=== PATIENT | male | born 1995 | race Caucasian/White ===

== ENCOUNTER 2019-09-26 01:42 | Emergency (ER) | payer MEDICAID ==
[~2019-09-26] VITALS: Ht 25.4 cm; Wt 73.9 kg
[2019-09-26] MEDS ORDERED: SODIUM CHLORIDE 0.9% 1,000 ML IV ONE ×2 (02:40→03:15)
[2019-09-26 02:57] LABS: Basophils # (auto) 0 10 ^3/uL (0-0.2); Basophils % (auto) 0.3 % (0.0-2.0); Eosinophils # (auto) 0.1 10 ^3/uL (0-0.8); Eosinophils % (auto) 0.3 % (0.0-7.0); Hematocrit 51.3 % (41.0-53.0); Hemoglobin 18.2 g/dL (13.5-17.5); Lymphocytes # (auto) 0.4 10 ^3/uL (0.4-5.4); Lymphocytes % (auto) 2.6 % (10.0-50.0); Mean Corpuscular Hemoglobin 30.7 pg (28.0-32.0); Mean Corpuscular Hgb Conc. 35.5 g/dL (32.0-36.0); Mean Corpuscular Volume 86.6 fL (80.0-100.0); Monocytes # (auto) 0.7 10 ^3/uL (0-1.3); Monocytes % (auto) 4.6 % (0.0-12.0); Neutrophils # (auto) 14.3 10 ^3/uL (1.6-8.6); Neutrophils % (auto) 92.2 % (37.0-80.0); Nucleated Red Blood Cells % 0.1 %; Platelet Count (auto) 211 10^3/uL (140-450); Red Blood Cells 5.92 10^6/uL (4.5-5.90); White Blood Cell 15.5 10^3/uL (4.4-10.8)
[2019-09-26] MEDS ORDERED: IOHEXOL 300 MG/ML 100ML BOTTLE IJ ONE (03:09)
[2019-09-26] MEDS ORDERED: PROMETHAZINE HCL 25 MG/ML 1ML IV ONE (03:15)
[2019-09-26] MEDS ORDERED: HYDROmorphone HCL 2 MG/ML VL IV ONE (03:15)
[2019-09-26 03:16] LABS: Albumin 4.5 g/dL (3.4-5.0); BUN/Creatinine Ratio 16.3; Calcium 9.6 mg/dL (8.5-10.1); INR 1.03 (0.9-1.15); Partial Thromboplastin Time 26.8 sec (23.64-32.05); Potassium 3.5 mmol/L (3.5-5.1)
[2019-09-26 03:18] LABS: Bilirubin, Total 2.8 mg/dL (0.2-1.0); Total Protein 8.6 g/dL (6.4-8.2)
[2019-09-26 04:05] VITALS: BP 117/58
[2019-09-26] MEDS ORDERED: ONDANSETRON HCL 4 MG/2 ML VIAL IV ONE (04:30)
[2019-09-26] MEDS ORDERED: traMADol HCL 50 MG TAB PO ONE (04:30)
[2019-09-26] MEDS ORDERED: PANTOPRAZOLE 40 MG/10 ML VIAL INJ IV ONE (04:30)
== END 2019-09-26 05:21 | disposition home or self-care (01) ==
LOC: ER 01:47
DX: K52.9 Noninfective gastroenteritis and colitis, unspecified (principal); K76.0 Fatty (change of) liver, not elsewhere classified
CPT/HCPCS: 36415; 74177; 80053; 85025; 85610; 85730; 86850; 86900; 86901; 93005; 96361; 96374; 96375; 99285; C9113; J2405; J7030; Q9967